=== PATIENT | female | born 1945 | race Caucasian/White ===

== ENCOUNTER → 2017-10-04 | Outpatient (CLI) | payer OTHER ==
[~2017-10-04] MED LIST: INDERIDE 40/1 TABLET PO; KEFLEX500 MG PO; PROTONIX40 MG PO; SIMVASTATIN40 M1 G-TUBE; ZANTAC150 M1 PO; ZOFRAN4 MG PO
== END | disposition home or self-care (01) ==
LOC: NUC 08:25
DX: K22.70 Barrett's esophagus without dysplasia (principal); R10.13 Epigastric pain
CPT/HCPCS: 78264; A9541